=== PATIENT | male | born 1980 | race Caucasian/White ===

== ENCOUNTER 2020-05-11 12:05 | Observation (INO) | payer OTHER ==
[~2020-05-11] VITALS: Ht 175.3 cm; Wt 63.4 kg
--- NOTE | 2020-05-11 13:57 | NUR ---
TO [facility] FROM LOBBY
--- NOTE | 2020-05-11 14:02 | NUR ---
FIRST CONTACT WITH PT. PT C/O PAIN ON RIGHT BUTTOCK WITH ABSCESS SINCE TUESDAY. PT DENIES ANY OTHER SX. PT'S AOX4. RESPS EVEN AND UNLABORED. BP/SPO2 MONITORS IN PLACE. CALL LIGHT WITHIN REACH.
--- NOTE | 2020-05-11 14:23 | NUR ---
EDMD AT BEDSIDE EVALUATING AT THIS TIME.
[2020-05-11] MEDS ORDERED: HYDROmorphone 2 MG/ML, 1ML IVPush PRN (14:30)
[2020-05-11] MEDS ORDERED: SODIUM CHLORIDE FLUSH 10ML SYR IVF ONE (14:30)
[2020-05-11] MEDS ORDERED: HYDROmorphone 2 MG/ML, 1ML ONE (14:31)
--- NOTE | 2020-05-11 14:50 | NUR ---
PIV EST ON L HAND WITH NO COMPLICATIONS. PT MEDICATED PER EMAR. PT TOLERATED WELL.
[2020-05-11 15:02] LABS: BASOPHILS # (AUTO) 0.06 x10^3/uL (0-0.1); BASOPHILS % (AUTO) 1 % (0-1); EOSINOPHILS # (AUTO) 0.02 x10^3/uL (0-0.4); EOSINOPHILS % (AUTO) 0 % (1-7); LYMPHOCYTES # (AUTO) 1.02 x10^3/uL (1-3.4); LYMPHOCYTES % (AUTO) 10 % (22-44); MD NO; MEAN CORPUSCULAR HEMOGLOBIN 31.9 pg (27.5-34.5); MEAN CORPUSCULAR HGB CONC 34.2 g/dL (33.2-36.2); MEAN CORPUSCULAR VOLUME 93.1 fL (81-97); MEAN PLATELET VOLUME 7.3 fL (7.4-10.4); MONOCYTES # (AUTO) 1.11 x10^3/uL (0.2-0.8); MONOCYTES % (AUTO) 11 % (2-9); NEUTROPHILS # (AUTO) 7.74 x10^3/uL (1.8-6.8); NEUTROPHILS % (AUTO) 78 % (42-75); PLATELET COUNT 254 x10^3/uL (130-400); RED BLOOD COUNT 4.57 x10^6/uL (4.38-5.82); RED CELL DISTRIBUTION WIDTH 14.2 % (9.4-14.8)
[2020-05-11 15:06] LABS: ALBUMIN 3.9 g/dL (3.4-5.0); ANION GAP 8 mmol/L (5-15); CALCIUM 8.7 mg/dL (8.5-10.1); CHLORIDE 102 mmol/L (98-107)
--- NOTE | 2020-05-11 15:26 | NUR ---
PT IN CT NOW
[2020-05-11] MEDS ORDERED: OMNIPAQUE 350 MG/ML, 100ML BOTTLE ONE (15:33)
--- NOTE | 2020-05-11 15:35 | NUR ---
PT BACK TO ROOM FROM CT AT THIS TIME.
--- NOTE | 2020-05-11 16:12 | NUR ---
PT AMB TO BR WITH STEADY GAIT.
--- NOTE | 2020-05-11 16:29 | NUR ---
REPORT GIVEN TO ADRIEN MENDEZ.
[2020-05-11] MEDS ORDERED: METRONIDAZOLE PMX 500MG/100ML 100 ML IV ONE (16:30)
[2020-05-11] MEDS ORDERED: AMPICILLIN/SULBACTAM 3 GM in SODIUM CHLORIDE 0.9% 100 ML IV ONE (16:30)
[2020-05-11] MEDS ORDERED: METRONIDAZOLE PMX 500MG/100ML 0 ML ONE (16:41)
[2020-05-11] MEDS ORDERED: BUPIVACAINE/PF 0.25% ONE (16:44)
[2020-05-11] MEDS ORDERED: EPINEPHRINE 1 MG/ML, 1ML ONE (16:45)
--- NOTE | 2020-05-11 16:56 | NUR ---
ABX INFUSING AT THIS TIME. NO NEED BC PER EDMD. PT TOLERATED WELL.
--- NOTE | 2020-05-11 16:59 | NUR ---
PT NOW STATED"I HAVE AN ALLERGY OF PENICILLINS." THIS RN STOPPED INFUING UNASYN AND EDMD NOTIFIED.
[2020-05-11] MEDS ORDERED: CEFTRIAXONE PMX 1GM/50ML 50 ML IV ONE (17:00)
[2020-05-11] MEDS ORDERED: CEFTRIAXONE PMX 1GM/50ML 50 ML ONE (17:04)
--- NOTE | 2020-05-11 17:11 | NUR ---
ROCHEPHIN INFUSING AT THIS TIME INSTED OF UNASYN. PT TOLERATED WELL.
[2020-05-11] MEDS ORDERED: MIDAZOLAM 1 MG/ML, 2ML ONE (17:34)
[2020-05-11] MEDS ORDERED: FENTANYL PF 250 MCG/5ML ONE (17:34)
[2020-05-11] MEDS ORDERED: BUPIVACAINE/PF-EPI 0.25% 1:200K IM ONE (17:41)
[2020-05-11] MEDS ORDERED: DEXAMETHASONE 4 MG/ML, 1ML ONE (17:54)
[2020-05-11] MEDS ORDERED: PROPOFOL 10 MG/ML, 20ML ONE (17:54)
[2020-05-11] MEDS ORDERED: ONDANSETRON 2MG/ML, 2ML ONE (17:54)
[2020-05-11] MEDS ORDERED: CEFAZOLIN 1,000 MG ONE (17:54)
[2020-05-11] MEDS ORDERED: ACETAMINOPHEN 650 MG/20.3 ML UDC PO PRN (18:00)
[2020-05-11] MEDS ORDERED: FENTANYL PF 100 MCG/2ML IV PRN (18:00)
[2020-05-11] MEDS ORDERED: MORPHINE SULFATE 4 MG/ML, 1ML IVPush PRN (18:00)
[2020-05-11] MEDS ORDERED: KETOROLAC 30 MG/1 ML IV PRN (18:00)
[2020-05-11] MEDS ORDERED: OXYcodone 5 MG/5 ML ORAL.SOL UDC PO PRN (18:00)
[2020-05-11] MEDS ORDERED: ACETAMINOPHEN 325 MG TABLET PO PRN (18:00)
[2020-05-11] MEDS ORDERED: PROMETHAZINE 25 MG/ML, 1ML IVPush PRN (18:00)
[2020-05-11] MEDS ORDERED: ENALAPRILAT 1.25 MG/ML, 2ML IV PRN (18:00)
[2020-05-11] MEDS ORDERED: LORazepam 2 MG/ML, 1ML IVPush PRN (18:00)
[2020-05-11] MEDS ORDERED: POTASSIUM CHLORIDE 20 MEQ in D5%-0.45% NACL 1,000 ML IV SCH (18:00)
[2020-05-11] MEDS ORDERED: DIPHENHYDRAMINE 25 MG CAPSULE PO PRN (18:00)
[2020-05-11] MEDS ORDERED: ONDANSETRON 2MG/ML, 2ML IVPush PRN ×2 (18:00)
[2020-05-11] MEDS ORDERED: DIPHENHYDRAMINE 50 MG/ML, 1ML IV PRN (18:00)
[2020-05-11] MEDS ORDERED: HYDROmorphone 1 MG/ML, 1ML INJ IVPush PRN (18:00)
[2020-05-11] MEDS: CEFOTETAN PMX 1GM/50ML 50 ML IVPB SCH (20:05)
[2020-05-11 21:38] VITALS: BP 123/72
[2020-05-11] MEDS ORDERED: NICOTINE 21 MG/24 HR PATCH.TD24 TD SCH (22:30)
[2020-05-11 23:49] VITALS: BP 118/66
[2020-05-12 02:07] VITALS: BP 103/67
[2020-05-12 04:07] VITALS: BP 114/83
[2020-05-12] MEDS: HYDROcodone/APAP 5/325 TABLET PO PRN ×2 (04:13→10:01)
[2020-05-12 04:20] LABS: BASOPHILS # (AUTO) 0.01 x10^3/uL (0-0.1); BASOPHILS % (AUTO) 0 % (0-1); EOSINOPHILS % (AUTO) 0 % (1-7); LYMPHOCYTES # (AUTO) 0.83 x10^3/uL (1-3.4); LYMPHOCYTES % (AUTO) 10 % (22-44); MD NO; MEAN CORPUSCULAR HEMOGLOBIN 31.5 pg (27.5-34.5); MEAN CORPUSCULAR HGB CONC 33.2 g/dL (33.2-36.2); MEAN CORPUSCULAR VOLUME 94.8 fL (81-97); MEAN PLATELET VOLUME 7.5 fL (7.4-10.4); MONOCYTES # (AUTO) 0.45 x10^3/uL (0.2-0.8); MONOCYTES % (AUTO) 5 % (2-9); NEUTROPHILS % (AUTO) 85 % (42-75); PLATELET COUNT 236 x10^3/uL (130-400); RED BLOOD COUNT 4.64 x10^6/uL (4.38-5.82); RED CELL DISTRIBUTION WIDTH 14.4 % (9.4-14.8)
[2020-05-12 04:30] LABS: ALBUMIN 3.3 g/dL (3.4-5.0); ANION GAP 7 mmol/L (5-15); CALCIUM 8.5 mg/dL (8.5-10.1); CHLORIDE 102 mmol/L (98-107); CREATININE 0.85 mg/dL (0.7-1.3)
[2020-05-12 06:45] VITALS: BP 125/78
[2020-05-12] MEDS ORDERED: ENOXAPARIN 40 MG/0.4 ML SQ SCH (09:00)
[2020-05-12] MEDS ORDERED: ONDA4TAB7 PO (09:03)
[2020-05-12] MEDS ORDERED: CIPR500T3 PO (09:03)
[2020-05-12] MEDS ORDERED: HYDR-3240 PO (09:04)
[2020-05-12] MEDS ORDERED: METR-90 PO (09:06)
[2020-05-12] MEDS: CEFOTETAN PMX 1GM/50ML 50 ML IVPB SCH (09:42)
== END 2020-05-12 10:52 | disposition home or self-care (01) ==
LOC: ED 15:36 → EDIP 16:30 → 4NE 19:00 → DCLOUNGE 05-12 10:51
PROVIDERS: ADMIT Surgery; ATTEND Surgery
DX: Z03.818 Encounter for observation for suspected exposure to other biological agents ruled out (principal); K61.0 Anal abscess; F17.200 Nicotine dependence, unspecified, uncomplicated; F12.90 Cannabis use, unspecified, uncomplicated; Z88.0 Allergy status to penicillin
CPT/HCPCS: 36415; 46050; 72193; 80048; 82040; 85025; 87070; 87075; 87077; 87186; 87205; 87635; 96361; 96365; 96366; 96367; 96375; 99285; G0378; J0171; J0295; J0690; J0696; J1100; J1170; J1885; J2250; J2405; J2704; J3010; J3480; J3490; Q0163; Q9967

== ENCOUNTER 2020-09-09 17:52 | Emergency (ER) | payer OTHER ==
[~2020-09-09] VITALS: Ht 172.7 cm; Wt 63.8 kg
[~2020-09-09 17:52] MED LIST: CIPR500T3 PO; HYDR-3240 PO; METR-90 PO; ONDA4TAB7 PO
[2020-09-09 18:09] VITALS: BP 146/61
[2020-09-09] MEDS ORDERED: SODIUM CHLORIDE 0.9% 1,000ML IVBOLUS ONE (18:30)
[2020-09-09] MEDS ORDERED: SODIUM CHLORIDE FLUSH 10ML SYR IVF ONE (18:30)
[2020-09-09] MEDS ORDERED: THIAMINE 100 MG in SODIUM CHLORIDE 0.9% 50 ML IVPB ONE (18:30)
[2020-09-09] MEDS ORDERED: ONDANSETRON 2MG/ML, 2ML IVPush ONE (18:30)
[2020-09-09 19:43] LABS: ALANINE AMINOTRANSFERASE 659 U/L (12-78); ALBUMIN 4.2 g/dL (3.4-5.0); ANION GAP 12 mmol/L (5-15); CALCIUM 9.3 mg/dL (8.5-10.1); CHLORIDE 106 mmol/L (98-107); CREATININE 0.73 mg/dL (0.7-1.3); INTERNATIONAL NORMALIZED RATIO 0.9 (0.93-1.1); PROTHROMBIN TIME 9.6 Seconds (9.6-11.5)
[2020-09-09 19:51] LABS: ALKALINE PHOSPHATASE 170 U/L (45-117); BILIRUBIN,TOTAL 0.6 mg/dL (0.2-1.0); TOTAL PROTEIN 8.2 g/dL (6.4-8.2)
[2020-09-09 20:08] LABS: MEAN CORPUSCULAR HEMOGLOBIN 31.1 pg (27.5-34.5); MEAN PLATELET VOLUME 7.6 fL (7.4-10.4); PLATELET COUNT 104 x10^3/uL (130-400); RED BLOOD COUNT 5.34 x10^6/uL (4.38-5.82); RED CELL DISTRIBUTION WIDTH 15.1 % (9.4-14.8)
[2020-09-09 20:11] LABS: MD YES
--- NOTE | 2020-09-09 20:11 | NUR ---
pt to room from lobby
--- NOTE | 2020-09-09 20:28 | NUR ---
PT C/O COUGH AND FEVER, TESTED FOR COVID YESTERDAY, BEGAN WITH FEVER SYMPTOMS 1 WEEK AGO.
[2020-09-09 20:59] LABS: REACTIVE LYMPHS # (MANUAL) 0.36 x10^3/uL (0-0); REACTIVE LYMPHS % (MANUAL) 9 % (0-0)
[2020-09-09 21:01] LABS: BAND#(MANUAL) 0.08 x10^3/uL; BANDS%(MANUAL) 2 % (0-7); BASOS#(MANUAL) 0.12 x10^3/uL (0-0.1); BASOS% (MANUAL) 3 % (0-1); EOS#(MANUAL) 0.04 x10^3/uL (0.0-0.4); EOS% (MANUAL) 1 % (1-7); LYMPH#(MANUAL) 1.72 x10^3/uL (1-3.4); LYMPHS% (MANUAL) 43 % (22-44); MONOS#(MANUAL) 0.12 x10^3/uL (0.3-2.7); MONOS% (MANUAL) 3 % (2-9); SEG#(MANUAL) 1.56 x10^3/uL (1.8-6.8); SEGS% (MANUAL) 39 % (42-75)
[2020-09-09 21:02] LABS: <RBC MORPHOLOGY> NORMAL
[2020-09-09 21:05] LABS: <PLATELET ESTIMATE> DECREASED; <PLT MORPHOLOGY> NORMAL PLT MORPH
== END 2020-09-09 21:36 | disposition left against medical advice (07) ==
LOC: ED 21:00
DX: U07.1 COVID-19 (principal); J69.0 Pneumonitis due to inhalation of food and vomit; K70.10 Alcoholic hepatitis without ascites; F10.120 Alcohol abuse with intoxication, uncomplicated; M79.10 Myalgia, unspecified site; R11.2 Nausea with vomiting, unspecified; R06.02 Shortness of breath; J02.9 Acute pharyngitis, unspecified; R09.81 Nasal congestion; R05 Cough; R53.83 Other fatigue; Y90.0 Blood alcohol level of less than 20 mg/100 ml
CPT/HCPCS: 36415; 71045; 76700; 80053; 80320; 83605; 83690; 85025; 85610; 85730; 93005; 99285; G0480